=== PATIENT | male | born 1930 | race Caucasian/White ===

== ENCOUNTER → 2016-11-01 | Outpatient (CLI) | payer OTHER, MEDICARE | LOC: MMPC 11:11 | DX: C76.52 Malignant neoplasm of left lower limb (principal); J45.30 Mild persistent asthma, uncomplicated; I10 Essential (primary) hypertension; R97.20 Elevated prostate specific antigen [PSA]; K21.9 Gastro-esophageal reflux disease without esophagitis; B35.6 Tinea cruris; D32.9 Benign neoplasm of meninges, unspecified | CPT/HCPCS: 99213; G0463 ==